=== PATIENT | male | born 1955 ===

== ENCOUNTER 2018-06-02 12:56 | Inpatient (IN) ==
[2018-06-02] MEDS ORDERED: Etomidate Inj 20 MG/10 ML Ampul IV.PUSH ONE (12:59)
[2018-06-02] MEDS ORDERED: Succinylcholine Inj 200 MG/10 ML Vial ONE (12:59)
[2018-06-02 13:30] LABS: Baso # (Auto) 0.1 th/mm3 (0.0-0.2); Baso % (Auto) 0.9 % (0.0-2.0); Eos % (Auto) 0.2 % (0.0-4.0); Hematocrit 35.8 % (39.0-51.0); Hemoglobin 11.2 gm/dL (13.0-17.0); Lymph # (Auto) 8.1 th/mm3 (1.0-4.8); Lymph % (Auto) 65.3 % (9.0-44.0); Mean Corpuscular HGB Conc 31.2 % (32.0-36.0); Mean Corpuscular Volume 92.8 fL (80.0-100.0); Mean Platelet Volume 8.4 fL (7.0-11.0); Mono # (Auto) 0.8 th/mm3 (0.0-0.9); Mono % (Auto) 6.6 % (0.0-8.0); Neut # (Auto) 3.4 th/mm3 (1.8-7.7); Platelet Count 195 th/mm3 (150-450); Red Blood Count 3.86 mil/mm3 (4.50-5.90); Red Cell Distribution Width 16.2 % (11.6-17.2); White Blood Count 12.4 th/mm3 (4.0-11.0)
[2018-06-02 13:35] LABS: ABG Base Excess -2.3 mmol/L (-2-2); ABG PCO2 75 mmHg (38-42); ABG PO2 58 mmHg (61-120)
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
[2018-06-02 13:40] LABS: Activated Partial Thrombo Time 30.6 sec (23.4-31.7); INR 1.1 Ratio; Prothrombin Time 10.7 sec (9.8-11.6)
[2018-06-02 13:56] LABS: Lymphocytes 58 % (9-44); Monocytes 7 % (0-8); Myelocytes 1 % (0-0); Platelet Estimate Normal (Normal); Platelet Morphology Normal (Normal); RBC Morphology Normal (Normal); Tallied Nucleated RBC 1 (0-0)
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
[2018-06-02] MEDS ORDERED: Tranexamic Acid Inj 1,000 MG/10 ML Ampul ONE (14:29)
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
[2018-06-02] MEDS ORDERED: Docusate Sodium 100 MG Capsule PO SCH (14:30)
[2018-06-02] MEDS ORDERED: Norepinephrine-Dextrose Drip 0 MG/0 ML BAG IV.SIG ONE (14:59)
[2018-06-02] MEDS ORDERED: Norepinephrine Inj 4 MG in Sodium Chlor 0.9% Inj 246 ML IV.SIG PRN (15:00)
[2018-06-02 15:16] LABS: ABG Base Excess -6.7 mmol/L (-2-2); ABG PCO2 41 mmHg (38-42); ABG PO2 129 mmHg (61-120)
[2018-06-02] MEDS ORDERED: Naloxone Inj 0.4 MG/ML Vial IV.PUSH PRN (15:16)
[2018-06-02] MEDS ORDERED: Bisacodyl 10 MG Supp RECTAL PRN (15:16)
[2018-06-02] MEDS ORDERED: Post-op Orders (for Pharmacy) OTHER ONE (15:16)
[2018-06-02] MEDS: fentaNYL 10 mcg/mL Premix Drip 2,500 MCG/250 ML BAG IV.SIG PRN (15:36)
[2018-06-02] MEDS: Midazolam 100 MG/100 ML Inj 100 MG/100 ML BAG IV.CONT PRN (15:36)
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
[2018-06-02 15:37] LABS: Hematocrit 37.2 % (39.0-51.0); Hemoglobin 12.5 gm/dL (13.0-17.0); Mean Corpuscular HGB Conc 33.5 % (32.0-36.0); Mean Corpuscular Hemoglobin 29.5 pg (27.0-34.0); Mean Platelet Volume 7.9 fL (7.0-11.0); Platelet Count 181 th/mm3 (150-450); Red Blood Count 4.23 mil/mm3 (4.50-5.90); Red Cell Distribution Width 15.2 % (11.6-17.2); White Blood Count 10.3 th/mm3 (4.0-11.0)
[2018-06-02 15:44] LABS: INR 1.1 Ratio; Prothrombin Time 11.6 sec (9.8-11.6)
[2018-06-02] MEDS ORDERED: levETIRAcetam 1000mg/100mL Inj 100 ML IV.SIG ONE (15:49)
[2018-06-02 15:56] LABS: Amphetamine Screen,Urine Neg (Neg); Barbiturate Screen,Urine Neg (Neg); Cannabinoid Screen,Urine Neg (Neg); Cocaine Screen,Urine Neg (Neg)
[2018-06-02 15:57] LABS: Opiate Screen,Urine Neg (Neg)
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
[2018-06-02 16:06] LABS: Carbon Dioxide 19.9 meq/L (21.0-32.0)
--- NOTE | 2018-06-02 16:09 | XR ---
EXAM DATE: 06/02/2018 4:05 PM EST AGE/SEX: 62 years / Male INDICATIONS: Central line placement. CLINICAL DATA: This is the patient's subsequent encounter. Patient reports that signs and symptoms h ave been present for 3 days and indicates a pain score of Nonresponsive. MEDICAL/SURGICAL HISTORY: Non-responsive. Non-responsive. COMPARISON: [facility] [place], CHEST 1V SINGLE AP, 06/02/2018. . FINDINGS: Bilateral chest tubes are noted. No significant pneumothorax identified. Endotracheal tube has its ti p in good position well above the farhan. Left subclavian central line has its tip at the junction of the right subclavian vein and superior vena cava. Nasogastric tube has its tip in stomach. Scattered infiltrates are noted bilaterally. Multiple bilateral rib fractures are again noted. Left scapular a nd distal clavicular fractures are also again noted. CONCLUSION: 1. Scattered infiltrates are noted bilaterally consistent with atelectasis and/or developing infiltr ates. 2. Multiple bilateral rib fractures, left scapular fracture and left distal clavicular fracture are again noted. 3. Left subclavian central line has its tip directed into the right subclavian vein near the junctio n with the superior vena cava. 4. The remainder of the tubes and lines are stable. 5. No pneumothorax is noted. Electronically signed by: Saulo Luu MD 06/02/2018 4:08 PM EST
[2018-06-02 16:11] LABS: Calcium 6.4 mg/dL (8.5-10.1); Potassium 2.9 meq/L (3.5-5.1)
[2018-06-02] MEDS: Sod Chloride 0.9% Inj 1,000 ML IV.CONT SCH (16:23)
[2018-06-02 16:25] LABS: Calcium-Albumin Corrected 7.2 mg/dL (8.5-10.1)
[2018-06-02] MEDS: Pantoprazole Inj 40 MG Vial IV.PUSH SCH (16:27)
[2018-06-02 16:40] LABS: ABG Base Excess -6.5 mmol/L (-2-2); ABG PCO2 33 mmHg (38-42); ABG PO2 77 mmHg (61-120)
[2018-06-02] MEDS ORDERED: Potassium Chlor 40 mEq Premix 40 MEQ/100 ML PIGGYBACK IV.SIG ONE (17:00)
[2018-06-02] MEDS: ceFAZolin 1 GM Premix Inj 1 GM/50 ML FROZ.PIGGY IV.SIG SCH (17:22)
[2018-06-02 17:35] VITALS: BP 166/77
[2018-06-02] MEDS ORDERED: Magnesium Sulfate Inj 2 GM in Sodium Chlor 0.9% Inj 96 ML IV.SIG PRN (18:13)
[2018-06-02] MEDS ORDERED: Sodium Phosphate Inj 30 MMOL in Sodium Chlor 0.9% Inj 250 ML IV.SIG PRN (18:13)
[2018-06-02] MEDS ORDERED: Magnesium Oxide 400 MG Tablet PO PRN (18:13)
[2018-06-02] MEDS ORDERED: Potassium Chlor 20 mEq Premix 20 MEQ/100 ML PIGGYBACK IV.SIG PRN ×2 (18:13)
[2018-06-02] MEDS ORDERED: Potassium Chloride 25 MEQ Effervescent Tablet PO PRN (18:13)
[2018-06-02] MEDS ORDERED: Magnesium Sulfate Inj 4 GM in Sodium Chlor 0.9% Inj 92 ML IV.SIG PRN (18:13)
[2018-06-02] MEDS ORDERED: Potassium Chlor 40 mEq Premix 40 MEQ/100 ML PIGGYBACK IV.SIG PRN ×2 (18:13)
[2018-06-02] MEDS ORDERED: Potassium Phosphate 500 MG Soluble Tablet PO PRN ×2 (18:13)
[2018-06-02] MEDS ORDERED: Potassium Phosphate Inj 30 MMOL in Sodium Chlor 0.9% Inj 250 ML IV.SIG PRN (18:13)
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
[2018-06-02] MEDS: Senna/Docusate Sodium 8.6/50 MG Tablet PO SCH (21:47)
--- NOTE | 2018-06-02 22:58 | CT ---
EXAM DATE: 06/02/2018 10:50 PM EST AGE/SEX: 62 years / Male INDICATIONS: Follow up hemorrhage. CLINICAL DATA: This is the patient's subsequent encounter. Patient reports that signs and symptoms h ave been present for 1 day and indicates a pain score of Nonresponsive. MEDICAL/SURGICAL HISTORY: Non-responsive. Non-responsive. RADIATION DOSE: 40.48 CTDI (mGy) COMPARISON: [facility] – [place], CT HEAD W/O CONTRAST, 06/02/2018. . TECHNIQUE: CT of the head without contrast. Using automated exposure control and adjustment of the mA and/or kV according to patient size, radiation dose was kept as low as reasonably achievable to ob tain optimal diagnostic quality images. DICOM format image data is available electronically for revi ew and comparison. FINDINGS: When compared to the prior examination there has been an increase in the subarachnoid hemorrhage. Thi s is most pronounced involving the sylvian fissures bilaterally and completely opacifying the suprase llar cistern. Intraventricular hemorrhage is again noted particularly within the fourth ventricle. Th is is stable. There has been interval placement of a left-sided ventriculostomy with the tip at the m idline approaching but not quite to the level of the suprasellar cistern. Other than the atria of the left lateral ventricle there is complete effacement of the lateral ventricles bilaterally. There is total effacement of the sulcal pattern involving both cerebral hemispheres. No appreciable midline sh ift. Left temporal fracture with extension to the mastoid air cells is unchanged. Air-fluid levels no fransico within scattered ethmoid air cells bilaterally as well as the maxillary sinuses bilaterally and s phenoid sinuses bilaterally. Unchanged encephalomalacia involving the left occipital lobe. CONCLUSION: 1. Worsening subarachnoid hemorrhage and mass effect as detailed above. . Electronically signed by: Sea Chow MD 06/02/2018 10:57 PM EST
--- NOTE | 2018-06-02 23:18 | CT ---
EXAM DATE: 06/02/2018 10:59 PM EST AGE/SEX: 62 years / Male INDICATIONS: Evaluate hemorrhage. CLINICAL DATA: This is the patient's subsequent encounter. Patient reports that signs and symptoms h ave been present for 1 day and indicates a pain score of Nonresponsive. MEDICAL/SURGICAL HISTORY: Non-responsive. Non-responsive. RADIATION DOSE: 26.66 CTDI (mGy) COMPARISON: [place], CT HEAD W/O CONTRAST, 06/02/2018. . TECHNIQUE: Volumetric scanning was performed using a multi-row detector CT scanner during bolus infu tawana of 75 ml Visipaque 320 (iodixanol) nonionic water-soluble contrast as a single exam dose. The data was post processed with a variety of visualization algorithms including full volume maximum int ensity projection, multi-planar sliding thin slab reformation, curved planar reformation, and surface rendering techniques. Using automated exposure control and adjustment of the mA and/or kV according to patient size, radiation dose was kept as low as reasonably achievable to obtain optimal diagnosti c quality images. DICOM format image data is available electronically for review and comparison. FINDINGS: There is decent visualization of the major intracranial arteries out to the second-order branch vesse ls. There is a fair amount of venous contamination which degrades the study somewhat. There is no ev idence for aneurysm, vessel truncation or stenosis, and no evidence for vascular malformation. CONCLUSION: 1. Study degraded by venous contamination. 2. No definitive aneurysm observed. . Electronically signed by: Sea Chow MD 06/02/2018 11:17 PM EST
[2018-06-02] MEDS: Propofol 1000 mg/100 ml Inj 1,000 MG/100 ML BOTTLE IV.CONT PRN (23:42)
--- NOTE | 2018-06-03 00:19 | P.PNNS ---
Subjective Interval history: 06/03/18 12:17am Reviewed follow-up scan showing global likely hypoxic injury (dark in multiple hemispheres) and likely pseudosubarachnoid hemorrhage. ICPs up to 30, trying 3 % drip (propofol would drop his CPP too much). Overall poor prognosis discussed with Dr. Em and we are in agreement. No neurosurgical intervention planned given overall poor prognosis. Will readdress in AM. Physical Exam Vital signs: Vital Signs 06/02/18 13:50 06/02/18 14:05 06/02/18 14:16 Temperature Pulse Rate 103 H Respiratory Rate 21 Blood Pressure Pulse Oximetry 87 L 97 06/02/18 14:31 06/02/18 15:00 06/02/18 16:00 Temperature 96.4 F L 96.3 F L 96.3 F L Pulse Rate 56 L 98 H 105 H Respiratory Rate 21 Blood Pressure 166/77 H Pulse Oximetry 97 97 06/02/18 16:57 06/02/18 16:59 06/02/18 17:00 Temperature 97.0 F L Pulse Rate 109 H 109 H Respiratory Rate 24 Blood Pressure Pulse Oximetry 95 92 L 06/02/18 18:00 06/02/18 19:00 06/02/18 20:00 Temperature 98.6 F 100.2 F H 101.1 F H Pulse Rate 118 H 123 H 124 H Respiratory Rate Blood Pressure Pulse Oximetry 95 99 98 06/02/18 20:09 06/02/18 21:00 06/02/18 22:00 Temperature 101.3 F H 101.5 F H Pulse Rate 122 H 115 H Respiratory Rate 18 18 Blood Pressure Pulse Oximetry 96 98 97 06/02/18 22:31 06/02/18 23:00 06/02/18 23:21 Temperature 100.8 F H Pulse Rate 123 H 108 H Respiratory Rate 18 18 Blood Pressure Pulse Oximetry 98 99 06/02/18 23:59 Temperature Pulse Rate Respiratory Rate 18 Blood Pressure Pulse Oximetry 98 Intake & Output 06/02/18 06/02/18 06/03/18 06:59 18:59 06:59 Intake Total 684 / 684 100 / 100 Output Total 872 / 872 Balance -188 / -188 100 / 100 Weight 80.2 kg Intake: IV 255 / 255 100 / 100 KCl 40 mEq Premix Inj 40 meq In 100 / 100 100 ml @ 25 mls/hr IV.SIG NOW ONE Rx#:[id number] Ancef 1 GM Premix Inj 1 gm In 50 / 50 50 ml @ 200 mls/hr IV.SIG Q8H JOHN Rx#:[id number] Keppra 1000 mg/100 mL Premix 100 / 100 100 ML @ 400 mls/hr IV.SIG ONCE ONE Rx#:[id number] Keppra Inj 500 MG In NS Inj 100 105 / 105 ML @ 400 mls/hr IV.SIG Q12H JOHN Rx#:[id number] Intake (Blood Product) Amt 429 / 429 Liquid Pooled Plasma Cp2d Unit 0 / 0 [id number] Liquid Pooled Plasma Cp2d Unit 0 / 0 [id number] Liquid Pooled Plasma Cp2d Unit 0 / 0 [id number] Liquid Pooled Plasma Cp2d Unit 226 / 226 [id number] Plt Pheresis A Leukoreduced 203 / 203 Unit [id number] Output: Urine Amount (Catheter) 650 / 650 Indwelling Temp Sensing 650 / 650 Catheter Gastric Drainage 150 / 150 Oral 150 / 150 Chest Tube Drainage 52 / 52 Left 40 / 40 Right 12 / 12 Intracranial Drainage 20 / 20 Ventricle Left Temporoparietal 20 / 20 Other: Weight On Admission 80.2 kg - Urinary Catheter Management Indwelling Temp Sensing Catheter Cath placed during this visit: yes Reason for continuing: Hourly intake/output Insertion date: 06/02/18 Insertion time: 15:30 Assessment and Plan - Plan 62yoM half-way trauma, traumatic SAH, GCS 3, long resuscitation. plan: Left frontal EVD placed, ICP 24 down to 5, continue at EAC. If ICP > 20, Mannitol 20gm IV q6 Keppra 1gm IV load then 500mg BID Monitor neuro exam for signs of improvement. Repeat head CT with CTA head in next few hours and if stable from trauma viewpoint. Defer remainder to trauma and overall prognosis guarded.
[2018-06-03] MEDS: ceFAZolin 1 GM Premix Inj 1 GM/50 ML FROZ.PIGGY IV.SIG SCH ×2 (00:35→09:07)
[2018-06-03] MEDS: Sod Chloride 0.9% Inj 1,000 ML IV.CONT SCH ×2 (01:01→14:03)
[2018-06-03] MEDS ORDERED: Sodium Chloride 23.4% Inj 240 MEQ in Syringe/Bag 1 EACH IV.SIG SCH (03:00)
[2018-06-03] MEDS: Midazolam 100 MG/100 ML Inj 100 MG/100 ML BAG IV.CONT PRN ×3 (03:58→22:25)
[2018-06-03] MEDS ORDERED: Chlorhexidine Gluconate 2% 1 Pack (2 Cloths) TOPICAL PRN (04:00)
--- NOTE | 2018-06-03 04:38 | XR ---
EXAM DATE: 06/03/2018 3:55 AM EST AGE/SEX: 62 years / Male INDICATIONS: Respiratory distress. CLINICAL DATA: This is the patient's subsequent encounter. Patient reports that signs and symptoms h ave been present for 2 days and indicates a pain score of Nonresponsive. MEDICAL/SURGICAL HISTORY: Myocardial infarction. Subarachnoid hemorrhage. Chest tube, left. Chest tube, right. Coronary artery stent. Heart transplant recipient. Central line. COMPARISON: C, CHEST 1V SINGLE AP, 06/02/2018. . FINDINGS: 2 portable frontal views of the chest showing endotracheal tube with the tip 5 cm from the farhan. Na sogastric tube coiled in the stomach. Left subclavian central line with the tip in the brachiocephali c vein. Bilateral thoracostomy tubes. No pneumothorax. Bibasilar atelectasis with small left effusion are unchanged. Heart is mildly enlarged but stable. Multiple left-sided rib fractures. Left scapular fracture. CONCLUSION: Unchanged exam as detailed above. Electronically signed by: Sea Chow MD 06/03/2018 4:37 AM EST
[2018-06-03] MEDS: Chlorhexidine Gluconate 2% 1 Pack (2 Cloths) TOPICAL SCH (05:00)
[2018-06-03 06:15] LABS: ABG Base Excess -1.9 mmol/L (-2-2); ABG PCO2 41 mmHg (38-42); ABG PO2 191 mmHg (61-120)
[2018-06-03 06:24] LABS: Baso % (Auto) 0.2 % (0.0-2.0); Hematocrit 35.6 % (39.0-51.0); Hemoglobin 12.1 gm/dL (13.0-17.0); Lymph # (Auto) 0.7 th/mm3 (1.0-4.8); Lymph % (Auto) 7.9 % (9.0-44.0); Mean Corpuscular Hemoglobin 29.6 pg (27.0-34.0); Mean Corpuscular Volume 87.2 fL (80.0-100.0); Mono # (Auto) 0.8 th/mm3 (0.0-0.9); Mono % (Auto) 8.7 % (0.0-8.0); Neut # (Auto) 7.3 th/mm3 (1.8-7.7); Neut % (Auto) 83.2 % (16.0-70.0); Platelet Count 135 th/mm3 (150-450); Red Blood Count 4.09 mil/mm3 (4.50-5.90); White Blood Count 8.8 th/mm3 (4.0-11.0)
[2018-06-03] MEDS: fentaNYL 10 mcg/mL Premix Drip 2,500 MCG/250 ML BAG IV.SIG PRN ×2 (06:34→15:15)
[2018-06-03 06:41] LABS: Activated Partial Thrombo Time 26.4 sec (23.4-31.7); INR 1.1 Ratio; Prothrombin Time 11.5 sec (9.8-11.6)
[2018-06-03 06:54] LABS: Calcium 6.6 mg/dL (8.5-10.1); Carbon Dioxide 23.7 meq/L (21.0-32.0); Potassium 4.5 meq/L (3.5-5.1)
[2018-06-03 07:14] LABS: Albumin 2.7 g/dL (3.4-5.0); Calcium-Albumin Corrected 7.6 mg/dL (8.5-10.1)
[2018-06-03] MEDS: Senna/Docusate Sodium 8.6/50 MG Tablet PO SCH ×2 (09:09→20:21)
[2018-06-03] MEDS: Multivitamin Inj 10 ML, Thiamine Inj 100 MG, Folic Acid Inj 1 MG in Sodium Chlor 0.9% I... IV.SIG SCH (09:09)
[2018-06-03] MEDS ORDERED: Cisatracurium Inj 100 MG in Sodium Chlor 0.9% Inj 240 ML IV.CONT PRN (09:26)
--- NOTE | 2018-06-03 10:58 | OTSOAPIP ---
TIME SESSION COMPLETED: 1045 TREATMENT TIME: 0 MINS. CHART REVIEWED. REQUESTED TO HOLD OT ASSESSMENT PER DEBBIE DE LEÓN Therapist: Mine Cook Signature on file
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
--- NOTE | 2018-06-03 14:46 | ECHRPT ---
Indication: CONCLUSIONS Normal left ventricular size. Wall thickness is measured at the upper limits of normal. The left ventricular systolic function is normal with an estimated ejection fraction in the range of 60-65%. No regional wall motion abnormalities are present. . There is trace tricuspid valve regurgitation. BP: / HR: Rhythm: Sinus MEASUREMENTS (Male / Female) Normal Values Technical Quality:Fair 2D ECHO LV Diastolic Diameter PLAX 4.1 cm 4.2 - 5.9 / 3.9 - 5.3 cm LV Systolic Diameter PLAX 2.5 cm IVS Diastolic Thickness 1.2 cm 0.6 - 1.0 / 0.6 - 0.9 cm LVPW Diastolic Thickness 1.2 cm 0.6 - 1.0 / 0.6 - 0.9 cm LV Relative Wall Thickness 0.6 RV Internal Dim ED PLAX 2.4 cm LVOT Diameter 2.4 cm Aortic Root Diameter 3.4 cm LA Systolic Diameter LX 3.5 cm 3.0 - 4.0 / 2.7 - 3.8 cm M-MODE AV Cusp Separation MM 2.0 cm DOPPLER AV Peak Velocity 95.1 cm/s AV Peak Gradient 3.6 mmHg AV Mean Gradient 2.0 mmHg AV Velocity Time Integral 15.6 cm LVOT Peak Velocity 59.4 cm/s LVOT Peak Gradient 1.4 mmHg LVOT Velocity Time Integral 9.2 cm AV Area Cont Eq vti 2.7 cm AV Area Cont Eq pk 2.8 cm Mitral E Point Velocity 47.4 cm/s Mitral A Point Velocity 43.4 cm/s Mitral E to A Ratio 1.1 LV E' Lateral Velocity 7.5 cm/s Mitral E to LV E' Lateral Ratio 6.3 LV E' Septal Velocity 4.1 cm/s Mitral E to LV E' Septal Ratio 11.6 TR Peak Velocity 179.0 cm/s TR Peak Gradient 12.8 mmHg Right Atrial Pressure 10.0 mmHg Pulmonary Artery Systolic Pressu 22.8 mmHg Right Ventricular Systolic Press 22.8 mmHg PV Peak Velocity 56.4 cm/s PV Peak Gradient 1.3 mmHg FINDINGS LEFT VENTRICLE Normal left ventricular size. Wall thickness is measured at the upper limits of normal. The left ventricular systolic function is normal with an estimated ejection fraction in the range of 60-65%. No regional wall motion abnormalities are present. . RIGHT VENTRICLE Normal right ventricular size and systolic function. LEFT ATRIUM The left atrial size is normal. RIGHT ATRIUM The right atrial size is normal. ATRIAL SEPTUM No atrial level shunt is demonstrated by color flow Doppler interrogation. AORTA The aortic root and proximal ascending aorta are normal in size on limited imaging. MITRAL VALVE Trace mitral valve regurgitation. AORTIC VALVE Trileaflet aortic valve. No aortic valve stenosis or regurgitation. TRICUSPID VALVE There is trace tricuspid valve regurgitation. PULMONARY VALVE No pulmonary valve regurgitation or stenosis. VESSELS The inferior vena cava is normal in size. PERICARDIUM No pericardial effusion. Brian Loredo MD (Electronically Signed) Final Date:03 June 2018 11:18
[2018-06-03] MEDS: Pantoprazole Inj 40 MG Vial IV.PUSH SCH (15:05)
[2018-06-03] MEDS: Propofol 1000 mg/100 ml Inj 1,000 MG/100 ML BOTTLE IV.CONT PRN ×3 (15:05→22:23)
[2018-06-03] MEDS ORDERED: Sodium Chloride 23.4% Inj 240 MEQ in Syringe/Bag 1 EACH IV.SIG ONE (16:58)
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
[2018-06-03 18:58] LABS: Sodium 157 meq/L (136-145)
--- NOTE | 2018-06-03 19:57 | ECG ---
Date Performed: 06/02/2018 Time Performed: 14:49:20 PTAGE: 62 years EKG: CONSIDER ACUTE ST ELEVATION VT Possible ectopic atrial rhythm. Left axis deviation Inferior infarct - age undetermined Possible anterior infarct - age undetermined Right ventricular hy pertrophy Lateral ST elevation, CONSIDER ACUTE INFARCT Abnormal ECG NO PREVIOUS TRACING DOCTOR: Claudia Lamas Interpretating Date/Time 06/03/2018 19:54:00
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
[2018-06-04] MEDS: fentaNYL 10 mcg/mL Premix Drip 2,500 MCG/250 ML BAG IV.SIG PRN (01:16)
[2018-06-04 01:29] LABS: Sodium 160 meq/L (136-145)
[2018-06-04] MEDS: Chlorhexidine Gluconate 2% 1 Pack (2 Cloths) TOPICAL SCH (04:06)
--- NOTE | 2018-06-04 04:06 | XR ---
EXAM DATE: 06/04/2018 3:53 AM EST AGE/SEX: 62 years / Male INDICATIONS: Respiratory distress. CLINICAL DATA: This is the patient's subsequent encounter. Patient reports that signs and symptoms h ave been present for 2 days and indicates a pain score of Nonresponsive. MEDICAL/SURGICAL HISTORY: Myocardial infarction. Subarachnoid hemorrhage. Chest tube, left. Chest tube, right. Coronary artery stent. Heart transplant recipient. Central line. COMPARISON: [facility] [place], CHEST 1V SINGLE AP, 06/03/2018. . FINDINGS: A single AP view of the chest demonstrates small left effusion with left lower lobe consolidation. Th is is more pronounced from the prior study. Right lung is clear. Bilateral thoracostomy tubes without pneumothorax. Left subclavian central line and nasogastric tube. Tip of the endotracheal tube 4 cm f rom the farhan. Heart is mildly enlarged. Multiple left-sided rib fractures. CONCLUSION: Some worsening of the left lower lobe consolidation. Left effusion is stable. Electronically signed by: Sea Chow MD 06/04/2018 4:05 AM EST
[2018-06-04] MEDS: Propofol 1000 mg/100 ml Inj 1,000 MG/100 ML BOTTLE IV.CONT PRN (04:15)
[2018-06-04 06:23] LABS: ABG Base Excess -4.8 mmol/L (-2-2); ABG PCO2 32 mmHg (38-42); ABG PO2 116 mmHg (61-120)
[2018-06-04 06:24] LABS: Baso % (Auto) 0.3 % (0.0-2.0); Eos # (Auto) 0.1 th/mm3 (0.0-0.4); Eos % (Auto) 0.8 % (0.0-4.0); Hemoglobin 10.4 gm/dL (13.0-17.0); Lymph # (Auto) 0.8 th/mm3 (1.0-4.8); Mean Corpuscular HGB Conc 33.6 % (32.0-36.0); Mean Corpuscular Hemoglobin 29.7 pg (27.0-34.0); Mean Corpuscular Volume 88.4 fL (80.0-100.0); Mean Platelet Volume 8.7 fL (7.0-11.0); Mono # (Auto) 0.6 th/mm3 (0.0-0.9); Mono % (Auto) 6.7 % (0.0-8.0); Neut # (Auto) 7.7 th/mm3 (1.8-7.7); Neut % (Auto) 83.2 % (16.0-70.0); Platelet Count 116 th/mm3 (150-450); Red Blood Count 3.51 mil/mm3 (4.50-5.90); Red Cell Distribution Width 16.2 % (11.6-17.2); White Blood Count 9.2 th/mm3 (4.0-11.0)
[2018-06-04 07:18] LABS: Albumin 2.4 g/dL (3.4-5.0); Calcium 7.4 mg/dL (8.5-10.1); Carbon Dioxide 19.4 meq/L (21.0-32.0); Potassium 3.9 meq/L (3.5-5.1); Total Protein 5.3 g/dL (6.4-8.2)
--- NOTE | 2018-06-04 08:03 | P.PNNPSY ---
- Behavior Intact: Impulsive/agitated - Psychosocial Intact: Psychosocial, Family/other adjustment, Realistic expectation - Progress Notes/Response to Treatment Contents of Sessions: Adjustment, Level of consciousness Time with Patient: 30 minutes Premorbid Psychological Status: Premorbid Cognitive, Emotional and Behavioral Status: Tenuous. 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 The patient has no prior psychiatric difficulties, as described above. Substance abuse history is unclear. Behavioral Reactions of Patient and Family/Support System: Stable. The patient s family is experiencing ongoing issues of adjustment given the nature of the injury, and this aspect of recovery will require ongoing monitoring. Emotional/Behavioral Status of Patient and Family/Support System: Stable. Pertinent issues, if appropriate to this patients clinical care, are described in detail above. Maximizing Acute Care Outcome: At this point in the recovery process, the patient does not have cognitive capacity as the patient is unable to understand a situation and its likely consequences, nor is the patient able to manipulate information rationally. Cognitive capacity will be assessed throughout the recovery process. Anticipated Problems: Ongoing areas of concern will include behavioral impulsivity, lack of insight and judgment, which is not expected to improve with time nor treatment. Treatment Plan: This clinician will continue to follow with you throughout the course of this patients critical care treatment, and I will be available to meet with the patients family/support system to facilitate their understanding and the ongoing care of their family member. The goals of neuropsychological intervention shall be both educational and supportive to the family/support system as is deemed clinically appropriate. [place] COG Scale: Level I Disinhibition Score: 14.00 Aggression Score: 14.00 Lability Score: 14.00 Agitated Behavior Total Score: 14 Impression: 62 year old male s/p TBI 2T [facility] [place] on 06/02/2018. Progress Note Narrative: PTD 2. There is no neurobehavioral change in this patient. No issues of agitation/restlessness. This patient suffered a severe brain injury with hypoxic component, and in my clinical opinion he has no chance for a meaningful neurobehavioral recovery. He is [place]. I will follow.
[2018-06-04] MEDS: Senna/Docusate Sodium 8.6/50 MG Tablet PO SCH (09:40)
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
[2018-06-04] MEDS: Multivitamin Inj 10 ML, Thiamine Inj 100 MG, Folic Acid Inj 1 MG in Sodium Chlor 0.9% I... IV.SIG SCH (09:47)
[2018-06-04] MEDS ORDERED: Sodium Chloride 23.4% Inj 38.5 MEQ in Water for Inj, Sterile 1,000 ML IV.CONT SCH (10:00)
[2018-06-04 11:09] LABS: ABG Base Excess -4.7 mmol/L (-2-2); ABG PCO2 34 mmHg (38-42); ABG PO2 137 mmHg (61-120)
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
[2018-06-04 13:16] VITALS: O2SAT 96
[2018-06-04 14:08] LABS: Sodium 162 meq/L (136-145)
[2018-06-04] MEDS ORDERED: Dextrose 5% in Water Inj 1,000 ML IV.CONT SCH (14:45)
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
[2018-06-04 15:22] VITALS: RESP 16
[2018-06-04] MEDS: Pantoprazole Inj 40 MG Vial IV.PUSH SCH (15:33)
[2018-06-04] MEDS ORDERED: Morphine Inj 4 MG/ML Vial IV.PUSH ONE (18:11)
[2018-06-04] MEDS ORDERED: Hyoscyamine Inj 0.5 MG/ML Ampul IV.PUSH PRN (18:11)
[2018-06-04] MEDS ORDERED: Morphine Sulfate Inj 8 MG/ML Vial IV.PUSH PRN (18:11)
[2018-06-04] MEDS ORDERED: Morphine Inj 4 MG/ML Vial IV.PUSH PRN (18:11)
[2018-06-04] MEDS ORDERED: Morphine Sulfate Inj 8 MG/ML Vial IV.PUSH ONE (18:11)
[2018-06-04] MEDS ORDERED: Hyoscyamine Inj 0.5 MG/ML Ampul IV.PUSH ONE (18:11)
[2018-06-04] MEDS ORDERED: Morphine Inj 4 MG/ML Vial IV.PUSH SCH (20:00)
[2018-06-04 20:11] VITALS: PULSE 0; TEMP 95.7
[2018-06-04] MEDS ORDERED: Sodium Chloride 0.9% 2 ML Flush BID IV.FLUSH SCH (21:00)
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
== END 2018-06-04 23:59 | disposition expired ==
LOC: NEPI 12:56 → EDBD 14:16 → MERGE 14:16 → N03 14:16
PROVIDERS: ADMIT Surgery; ATTEND Surgery